=== PATIENT | male | born 1965 | race Caucasian/White ===

== ENCOUNTER 2020-07-26 06:55 | Outpatient (NON) | payer OTHER, SELFPAY ==
[2020-07-26 16:41] LABS: SARS-CoV-2 RNA PCR Positive
== END 2020-07-26 06:56 ==
LOC: ANHCOVIDDT 07:25
PROVIDERS: PCP Family Medicine; Visit Provider Family Medicine
DX: U07.1 COVID-19 (principal)
CPT/HCPCS: 87635; C9803; U0003

== ENCOUNTER 2024-04-29 01:32 | Day surgery (SDC) | payer OTHER, SELFPAY ==
[2024-04-10 08:32] VITALS: BMI 31.6
[2024-04-29 06:37] VITALS: BP 131/86; PULSE 77; RESP 18; TEMP 36.8; O2SAT 99; BMI 29.5
[2024-04-29] MEDS: LACTATED RINGERS 1,000 ML 150 ML IV CONT (06:58)
--- NOTE | 2024-04-29 07:50 | P.PNAN_ITS ---
Anes - Initial Pre Proc Eval Procedure: Operation Date: 04/29/24 08:00 Proposed Procedures p Screening Colonoscopy - Bon Fournier MD Date/Time: 04/29/24 07:50 Surgeon: Bon Fournier MD Pre Op Diagnosis: Neoplasm screening Patient Data Age: 59 Gender: M Height: 1.78 m Weight: 93.2 kg Last Vital Signs Temp 98.2 F 04/29/24 06:37 Pulse 77 04/29/24 06:37 Resp 18 04/29/24 06:37 BP 131/86 04/29/24 06:37 Pulse Ox 99 04/29/24 06:37 O2 Del Method Room Air 04/29/24 06:37 Allergies Allergy/AdvReac Type Severity Reaction Status Date / Time No Known Allergies Allergy Verified 04/10/24 08:18 Home Medications Medication Instructions Recorded Confirmed Type allopurinol 300 mg tablet 300 mg PO DAILY #90 tabs 01/29/24 04/29/24 Rx ascorbate calcium (vitamin C) 500 100 mg PO DAILY 04/10/24 04/29/24 History mg tablet aspirin 325 mg tablet 325 mg PO DAILY 04/10/24 04/29/24 History Patient hx anesthesia problems: none Family hx anesthesia problems: none Results Review: All pre-operative results and documents have been reviewed as part of the pre- operative evaluation. [facility] Past Medical History Medical History (Updated 04/29/24 @ 07:51 by Bon Fournier MD) Colon cancer screening Social History Social History Smoking status: Never smoker Alcohol intake: never Substance use: never Substance use type: does not use Lack of Transportation: No Lack of Food: Never True Current Housing: I Have Housing Concerned About Future Housing: Decline to Answer Difficulty Paying Gas/Electric Bills: Decline to Answer Difficulty Paying for Meds: Decline to Answer Currently Unemployed: Decline to Answer Education: Decline to Answer Difficulty w/ Childcare or Family Care: Decline to Answer Living arrangements: with family Occupation/Education: occupation Gender identity (if verbalized by the patient): Male Sexual Orientation (if Verbalized by the Patient): Straight or Heterosexual Spiritual care concerns: No Anes - Eval Final PreProcedure Day of Procedure 04/29/24 07:50 Patient weight: obese Heart: regular rate and rhythm Lungs: clear to auscultation Airway: Mallampati scale class II Neurological: alert and oriented Last oral intake: >/= 8 hours ASA classification: II Emergent: no Anesthetic plan: proceed Anesthesia type and monitoring: general GIVS and standard monitoring Results Review: All pre-operative results and documents have been reviewed as part of the pre- operative evaluation. Informed Consent: The patient's anesthetic plan and its attendant risks and benefits were discussed with the patient/family/POA. Questions were solicited and answers provided to the satisfaction of the patient/family/POA.
--- NOTE | 2024-04-29 07:50 | PM.HPGS ---
History of Present Illness History of Present Illness Consent: Risks, benefits, and alternatives have been discussed and questions answered. Patient agrees to proceed with procedure. Chief complaint: Neoplasm screening Narrative: Arnel Sorensen is a 59 year old male here for first screening colonoscopy Review of Systems Review of Systems: All systems reviewed & are unremarkable except as noted in HPI and below PMFSH Past Medical History Medical History (Updated 04/29/24 @ 07:51 by Bon Fournier MD) Colon cancer screening Social History Social History Smoking status: Never smoker Alcohol intake: never Substance use: never Substance use type: does not use Lack of Transportation: No Lack of Food: Never True Current Housing: I Have Housing Concerned About Future Housing: Decline to Answer Difficulty Paying Gas/Electric Bills: Decline to Answer Difficulty Paying for Meds: Decline to Answer Currently Unemployed: Decline to Answer Education: Decline to Answer Difficulty w/ Childcare or Family Care: Decline to Answer Living arrangements: with family Occupation/Education: occupation Gender identity (if verbalized by the patient): Male Sexual Orientation (if Verbalized by the Patient): Straight or Heterosexual Spiritual care concerns: No Meds Home Medications and Allergies Home Medications Medication Instructions Recorded Confirmed Type allopurinol 300 mg tablet 300 mg PO DAILY #90 tabs 01/29/24 04/29/24 Rx ascorbate calcium (vitamin C) 500 100 mg PO DAILY 04/10/24 04/29/24 History mg tablet aspirin 325 mg tablet 325 mg PO DAILY 04/10/24 04/29/24 History Allergies Allergy/AdvReac Type Severity Reaction Status Date / Time No Known Allergies Allergy Verified 04/10/24 08:18 Vital Signs Vital Signs - 24 hr 04/29/24 06:37 Temperature 98.2 F Pulse Rate 77 Respiratory Rate 18 Blood Pressure 131/86 Pulse Oximetry 99 Oxygen Delivery Room Air Exam Const: General: comfortable and no acute distress HENMT: Face/Nose/Sinus: Normal nares present Eyes: General: appearance normal, both eyes and all related structures Neck: Neck: no JVD Resp: Auscultation: clear to auscultation bilaterally Cardio: Rate: regular rate Rhythm: regular rhythm GI: Inspection: non-distended GI Palp: Yes Soft to palpation Skin: General skin exam: normal color Neuro: General: gait normal Speech: normal speech Extrem: General: normal to inspection Psych: Mental Status: mental status grossly normal Assessment and Plan Assessment and plan (1) Colon cancer screening: Code(s): Z12.11 - Encounter for screening for malignant neoplasm of colon Status: Acute Assessment and Plan: colonoscopy
[2024-04-29 08:16] VITALS: BP 106/66; PULSE 74; RESP 18; O2SAT 95
[2024-04-29 08:26] VITALS: BP 110/70; PULSE 73; RESP 17; O2SAT 96
[2024-04-29 08:36] VITALS: BP 117/76; PULSE 65; RESP 15; O2SAT 97
== END 2024-04-29 08:57 | disposition home or self-care (01) ==
PROVIDERS: PCP Nurse Practitioner; Visit Provider Internal Medicine Gastroenterology
PROC: 0DJD8ZZ Inspection of Lower Intestinal Tract, Via Natural or Artificial Opening Endoscopic (ICD-10-PCS; CPT 45378; principal; 2024-04-29 08:00)
DX: Z12.11 Encounter for screening for malignant neoplasm of colon (principal); D12.2 Benign neoplasm of ascending colon; K57.30 Diverticulosis of large intestine without perforation or abscess without bleeding; E66.9 Obesity, unspecified; Z68.29 Body mass index [BMI] 29.0-29.9, adult; Z79.82 Long term (current) use of aspirin
CPT/HCPCS: 45385; 88305; J2001; J2704; J7120

== ENCOUNTER 2024-06-11 09:48 | Outpatient (CLI) | payer OTHER, SELFPAY ==
--- NOTE | ~2024-06-11 | CT_ITS ---
Non-contrast CT scan of the Abdomen and Pelvis Clinical indication: Abdominal pain Technique: 2.5 mm axial scans were obtained through the abdomen and pelvis without intravenous or or al contrast. Dose reduction technique was used on this scan by utilizing automated exposure control a nd iterative reconstruction technique. The dose-length product (DLP) was 805.73 mGy-cm. Findings: Images through the lung bases reveal no abnormalities. There is no evidence of renal or ureteral calculi. The kidneys and the ureters are nondilated. The liver, spleen, pancreas, gallbladder, and adrenals appear normal. There is no aortic aneurysm. There is no evidence of bowel obstruction. Small umbilical hernia contains fat and a focal portion of a loop of small bowel.. Images through the pelvis were performed. There is no evidence of ascites or lymphadenopathy. Urinary bladder unremarkable. No pelvic mass seen. Impression: No acute abnormality. Small umbilical hernia contains fat and a focal portion of a loop of small bowel. No small bowel obst ruction or bowel wall thickening. Reviewed, dictated and finalized at location . Impression: No acute abnormality. Small umbilical hernia contains fat and a focal portion of a loop of small rachel l. No small bowel obstruction or bowel wall thickening.
== END 2024-06-11 09:49 | disposition home or self-care (01) ==
LOC: MICIMG 09:49
PROVIDERS: PCP Nurse Practitioner; Visit Provider Nurse Practitioner
DX: K42.9 Umbilical hernia without obstruction or gangrene (principal); R10.32 Left lower quadrant pain
CPT/HCPCS: 74176

== ENCOUNTER 2024-08-08 00:55 | Day surgery (SDC) | payer OTHER, SELFPAY ==
[2024-07-28 16:25] VITALS: BMI 30.8
--- NOTE | 2024-07-28 16:45 | PC.NURSE ---
Report to the Outpatient Waiting Room, entrance under the green pavilion located off [facility], at 0600 on 08-08-24. Planned Procedure Time: 0730.? Time changes happen often and if your time is changed the preop area will call you the afternoon before. - You and your visitor will be asked to self-screen and do not enter if you have any COVID symptoms. Please call surgeon if you need to reschedule. - A mask is optional within the hospital at this time. Patients may have clear liquids (water, carbonated beverages, clear teas, apple juice) until 3 hours prior to surgery with a maximum of 20 ounces. 0430 - No food from midnight until time of surgery and no smoking. This includes no chewing gum, candy or mints. - Infants may have breast milk until 4 hours before surgery, infant formula 6 hours prior to surgery. - Children will be allowed to drink immediately following surgery.? If applicable, please bring a bottle or sippy cup to assist with drinking. Juice, water, soda, and popsicles are readily available.? For infants on formula, please bring formula the day of surgery.? Pacifiers are allowed. Take only the following medications with a SIP of water on the morning of surgery: None DO NOT STOP ANY OF YOUR OTHER PRESCRIPTION MEDICATIONS PRIOR TO SURGERY EXCEPT THE FOLLOWING Medications to discontinue per physician: Decrease to 81mg aspirin; vitamins and supplements Date to take last dose: 08-01-24; 08-05-24 Please no make-up, nail mongolian, hairspray, perfume, deodorant, or body powder the day of surgery.? No jewelry (including any body piercings) or valuables the day of surgery, leave them at home.? Please take a shower or bath the night before, or the morning of, surgery with an antibacterial soap.? Wear comfortable, loose fitting clothing.? Children are encouraged to wear pajamas. - Jewelry must be removed prior to entering the operating room.? Rings and piercings that are not removed may be cut off. - The hospital will not accept responsibility for valuables.? - Please leave all valuables, including medications, at home the day of surgery. If you are going home after surgery, a licensed trailer driver must drive you home.? - NO public transportation without another adult if you receive anesthesia. - We recommend that an adult stay with you for 24 hours following discharge. - We also recommend that you do not drive, make important decision, drink alcoholic beverages, or take any drugs that were not prescribed by your health care provider for at least 24 hours after your discharge time. For Pediatric surgeries, we recommend two adults accompany the child home. Follow any additional instructions given to you from your surgeon. Telephone instructions given to Saurabh Sorensen and asked if any additional questions and then verbalized understanding. Patient advised to call surgeon office or pre surgery nurse liaison [phone] if any additional questions.
[2024-08-08] VITALS (9 sets, daily range): BP systolic 94–165; BP diastolic 59–89; PULSE 73–88; RESP 12–16; TEMP 36.1–36.5; O2SAT 93–100
[2024-08-08] MEDS: ACETAMINOPHEN 500 MG TABLET 1000 MG PO (06:30)
[2024-08-08] MEDS: KETOROLAC 15 MG/ML VIAL (*BKC) IV PUSH ×2 (06:35→07:57)
[2024-08-08] MEDS: LACTATED RINGERS 1,000 ML 30 ML IV CONT ×2 (06:35→08:47)
--- NOTE | 2024-08-08 07:13 | P.HP_ITS ---
H&P: HPI History of Present Illness Date/Time: 08/08/24 07:13 Chief Complaint: umbilical hernia Narrative: Mr. Sorensen returns to the office for recheck of a thrombosed hemorrhoid. Has been taking Metamucil daily which has helped with his stools. Denies constipation. Rectal pain and bleeding has improved and he no longer is able to feel hemorrhoidal tissue. He has an umbilical bulge that has been present for at least 7 years that he would like evaluated. It has been stable in size, but he has recently developed associated tenderness with physical activity. No nausea, vomiting, abdominal distension, or other obstructive symptoms. Review of Systems Review of Systems: The remainder of the review of systems to include constitutional, HEENT, cardiovascular, respiratory, GI, , integumentary, musculoskeletal, endocrine, immunologic, hematologic, psychiatric, and neurologic are all negative except for which is mentioned above in the HPI. [facility] Past Medical History Medical History Colon cancer screening Family History Family History Other Depression Hypertension Social History Social History Smoking status: Never smoker Second hand tobacco smoke exposure: No Alcohol intake: never Substance use: never Substance use type: does not use Lack of Transportation: No Lack of Food: Never True Current Housing: I Have Housing Concerned About Future Housing: Decline to Answer Difficulty Paying Gas/Electric Bills: Decline to Answer Difficulty Paying for Meds: Decline to Answer Currently Unemployed: Decline to Answer Education: Decline to Answer Difficulty w/ Childcare or Family Care: Decline to Answer Living arrangements: with family Occupation/Education: occupation Gender identity (if verbalized by the patient): Male Sexual Orientation (if Verbalized by the Patient): Straight or Heterosexual Spiritual care concerns: No Meds Home Medications and Allergies Home Medications Medication Instructions Recorded Confirmed Type allopurinol 300 mg tablet 300 mg PO DAILY #90 tabs 01/29/24 08/08/24 Rx ascorbate calcium (vitamin C) 500 100 mg PO DAILY 04/10/24 08/08/24 History mg tablet aspirin 325 mg tablet 325 mg PO DAILY 04/10/24 08/08/24 History Allergies Allergy/AdvReac Type Severity Reaction Status Date / Time No Known Allergies Allergy Verified 08/08/24 06:20 Vital Signs Vital Signs - 24 hr 08/08/24 06:57 Temperature 36.1 C L Pulse Rate 88 Respiratory Rate 16 Blood Pressure 165/89 H Pulse Oximetry 100 Oxygen Delivery Room Air Exam Const: General: comfortable and no acute distress HENMT: Ears: TM's normal bilaterally Face/Nose/Sinus: Normal nares present Mouth: Yes moist mucous membranes Eyes: General: appearance normal, both eyes and all related structures Sclera: sclerae normal Pupils: Equal, round and reactive pupils present EOM: EOMs intact bilaterally Neck: Neck: supple and no JVD Resp: Effort & Inspection: normal respiratory effort Auscultation: clear to auscultation bilaterally Cardio: Rate: regular rate Rhythm: regular rhythm GI: Other: Soft, nondistended umbilical hernia reducible, defect is 1.5-2 cm. Skin: General skin exam: normal color and no rashes or lesions noted Neuro: General: gait normal Speech: normal speech Motor exam (neuro): 5/5 motor strength present throughout Sensory Exam: normal sensation Extrem: General: normal to inspection Psych: Mental Status: mental status grossly normal Affect: normal affect Assessment and Plan Assessment and plan (1) Umbilical hernia without obstruction or gangrene: Code(s): K42.9 - Umbilical hernia without obstruction or gangrene Status: Acute Assessment and Plan: Patient has a increasingly symptomatic reducible umbilical hernia. Discussed proceeding with open umbilical hernia repair with possible mesh to be performed in the OR under anesthesia choice as an outpatient. The surgery was explained in detail including description, risks, benefits, the possible use of mesh, post-operative restrictions, recovery, and expected outcome. After discussion and answering all the patients questions, he would like to proceed as discussed.
--- NOTE | 2024-08-08 07:16 | WPDHPUPDATE1 ---
History and Physical Update Update Date/Time: 08/08/24 07:16 History and Physical has been reviewed, including an updated exam of the patient. There are NO changes in the patient's condition. Risks, benefits, and alternatives have been discussed and questions answered. Patient agrees to proceed with procedure.
--- NOTE | 2024-08-08 07:20 | WPDANESEPPF ---
Anes - Initial Pre Proc Eval Procedure: Operation Date: 08/08/24 07:30 Proposed Procedures p Open Umbilical Hernia Repair with Possible Mesh - Nicholas Sena MD Date/Time: 08/08/24 07:20 Surgeon: Nicholas Sena MD Pre Op Diagnosis: Umbilical Hernia Patient Data Age: 59 Gender: M Height: 1.78 m Weight: 96.1 kg Last Vital Signs Temp 36.1 C L 08/08/24 06:57 Pulse 88 08/08/24 06:57 Resp 16 08/08/24 06:57 BP 165/89 H 08/08/24 06:57 Pulse Ox 100 08/08/24 06:57 O2 Del Method Room Air 08/08/24 06:57 Allergies Allergy/AdvReac Type Severity Reaction Status Date / Time No Known Allergies Allergy Verified 08/08/24 06:20 Home Medications Medication Instructions Recorded Confirmed Type allopurinol 300 mg tablet 300 mg PO DAILY #90 tabs 01/29/24 08/08/24 Rx ascorbate calcium (vitamin C) 500 100 mg PO DAILY 04/10/24 08/08/24 History mg tablet aspirin 325 mg tablet 325 mg PO DAILY 04/10/24 08/08/24 History Patient hx anesthesia problems: none Family hx anesthesia problems: none Results Review: All pre-operative results and documents have been reviewed as part of the pre-operative evaluation. [facility] Past Medical History Medical History Colon cancer screening Family History Family History Other Depression Hypertension Social History Social History Smoking status: Never smoker Second hand tobacco smoke exposure: No Alcohol intake: never Substance use: never Substance use type: does not use Lack of Transportation: No Lack of Food: Never True Current Housing: I Have Housing Concerned About Future Housing: Decline to Answer Difficulty Paying Gas/Electric Bills: Decline to Answer Difficulty Paying for Meds: Decline to Answer Currently Unemployed: Decline to Answer Education: Decline to Answer Difficulty w/ Childcare or Family Care: Decline to Answer Living arrangements: with family Occupation/Education: occupation Gender identity (if verbalized by the patient): Male Sexual Orientation (if Verbalized by the Patient): Straight or Heterosexual Spiritual care concerns: No Anes - Eval Final PreProcedure Day of Procedure 08/08/24 07:20 Patient weight: obese Heart: regular rate and rhythm Lungs: clear to auscultation Airway: Mallampati scale class II Neurological: alert and oriented Last oral intake: >/= 8 hours ASA classification: II Emergent: no Anesthetic plan: proceed Anesthesia type and monitoring: general LMA and standard monitoring Results Review: All pre-operative results and documents have been reviewed as part of the pre-operative evaluation. Informed Consent: The patient's anesthetic plan and its attendant risks and benefits were discussed with the patient/family/POA. Questions were solicited and answers provided to the satisfaction of the patient/family/POA.
[2024-08-08] MEDS: ceFAZolin 2 GM/D5W 50 ML 2 GM/50 ML BAG IVPB (07:26)
[2024-08-08] MEDS: LIDO 1%/EPINEPHRINE 1:100,000 20 ML VIAL 40 ML INFILTRATE (07:44)
--- NOTE | 2024-08-08 08:20 | P.OP_ITS ---
Procedure Note - Detailed Date of Procedure 08/08/24 Pre-op Diagnosis Umbilical Hernia, reducible Post-op Diagnosis Same Procedure Performed Open reducible umbilical hernia repair with Bard Ventralex ST mesh. Surgeon Nicholas Sena MD Vp & General Counsel Liana Chun [employer] Anesthesia General Indications Patient is a 59-year-old male presented with a slowly enlarging umbilical bulge. It was reducible. He had a small umbilical hernia defect with the fascial defect measuring approximately 1.5 to 2 cm. He presents now for elective repair of the hernia. Findings The patient reducible umbilical hernia. The defect measured 2cm. There is just some preperitoneal fat and omentum in the hernia sac. I placed a small piece of Bard Ventralex ST mesh 4.3cm in diameter circular configuration in the preperitoneal space. Description of Procedure After informed consent was obtained patient brought to the operating room placed supine position and general LMA anesthesia was administered. The abdomen is then prepped and draped usual sterile fashion. A time-out was then performed correctly identifying the patient as well as procedure to be performed. He was given perioperative IV antibiotics. I then made a small curved incision in the lower portion of the umbilical fold with a scalpel then dissected through the dermis skin with a scalpel. I then dissected with electrocautery down to the hernia sac and then encircled the hernia sac with blunt clamp dissection. I then disconnected the dermis of the umbilicus and the hernia sac electrocautery. I could then feel the defect easily and was 2cm in diameter. Within the hernia sac was a small amount of omentum which was viable. Only med very small hole in the hernia sac to see was inside. I was then able to bluntly with my finger di ssected the preperitoneal space underneath the fascial edges. I dissected far enough back to place a small piece of mesh. I chose a piece of Bard Ventralex ST mesh 4.3cm in diameter. It was placed into the preperitoneal space I dissected it with my finger. I then secured the mesh straps to the fascial edges with interrupted 0 Ethibond sutures. This is done circumferentially. I then cut away the excess portion of mesh straps. The mesh laid out very nicely without any tension. I then irrigated out the mesh in incision with copious sterile saline solution. I then closed the attenuated edges of the fascial defect with interrupted 2-0 Vicryl sutures over the mesh. I then dissected some of the redundant umbilical skin with scissors. I then tacked down the umbilical stalk down to the deeper fascial edges the 3-0 Vicryl suture to try to recreate the inverted umbilicus. Interrupted 2-0 Vicryl and 3-0 Vicryl sutures then placed in subcutaneous tissues. The skin edges were then approximated utilizing a running subcuticular 4-0 Monocryl suture. The incision was then cleaned and then skin glue was applied. The patient tolerated the procedure well no complications. All sponges, needles, and instrument counts were correct at the end procedure. EBL was _5__cc. The patient was awakened and taken to recovery in stable and satisfactory condition. Implants Bard Ventralex ST mesh 4.3cm in circular configuration preperitoneal space. Estimated Blood Loss 5 Drains No Packing No Pathology None sent Complications No immediate complications Condition Stable Disposition PACU [facility] Billing Surgery - Charge Forward: Surgery Billing
[2024-08-08] MEDS: oxyCODONE HCL (*CRX) 5 MG TAB IR PO (09:48)
== END 2024-08-08 10:35 | disposition home or self-care (01) ==
PROVIDERS: PCP Nurse Practitioner; Visit Provider Surgery
PROC: (CPT 49591; principal; 2024-08-08 07:30)
DX: K42.9 Umbilical hernia without obstruction or gangrene (principal); E66.9 Obesity, unspecified; Z68.30 Body mass index [BMI] 30.0-30.9, adult; Z79.82 Long term (current) use of aspirin
CPT/HCPCS: 49591; A9270; C1781; J0690; J1100; J1885; J2003; J2004; J2250; J2405; J2704; J3010; J7120